=== PATIENT | male | born 1970 | race Caucasian/White ===

== ENCOUNTER 2018-01-16 03:42 | Emergency (ER) | payer MEDICAID, OTHER ==
[~2018-01-16] VITALS: Ht 177.8 cm; Wt 86.2 kg
[2018-01-16 03:44] VITALS: BP 135/80
--- NOTE | 2018-01-16 03:46 | NUR ---
TO BED # 5 AMBULATORY , REPORT GIVEN TO AMANDA DEE.
--- NOTE | 2018-01-16 03:50 | NUR ---
PATIENT IS A 47 Y/O MALE WHO PRESENTS TO THE ED C/O ABD PAIN. PT STATES THAT HE ATE PIZZA. PT REPORTS 10/10 BURNING ABD PAIN THAT DOES NOT RADIATE. PT DENIES CP, SOB, REPORTS NAUSEA/VOMITING. PT AAOX4, RR EVEN/UNLABORED, TOOK TUMS WITH NO RELIEF. PT REPOSITIONED FOR COMFORT, BED IN LOWEST POSITION. ER MD DR. PIERCE NOTIFIED. WILL CONTINUE TO MONITOR.
[2018-01-16] MEDS ORDERED: ONDANSETRON 4 MG ODT PO ONE (03:55)
[2018-01-16] MEDS ORDERED: DICYCLOMINE HCL LIQUID 20 MG, ALUMINUM HYD/MAG/SIMETHICONE 30 ML, LIDOCAINE VISCOUS 2% ... PO ONE ×3 (03:55)
[2018-01-16] MEDS ORDERED: ONDANSETRON 4 MG ODT ONE (04:04)
[2018-01-16] MEDS ORDERED: ALUMINUM HYD/MAG/SIMETHICONE 30 ML UDC ONE (04:05)
[2018-01-16] MEDS ORDERED: DICYCLOMINE HCL LIQUID 10 MG/5 ML UDC ONE (04:06)
[2018-01-16] MEDS ORDERED: LIDOCAINE VISCOUS 2% 20 ML UDC ONE (04:08)
[2018-01-16 05:25] VITALS: BP 132/78
--- NOTE | 2018-01-16 05:25 | NUR ---
Patient discharged with v/s stable. Written and verbal after care instructions given and explained. Patient alert, oriented and verbalized understanding of instructions. Ambulatory with steady gait. All questions addressed prior to discharge. ID band removed. Patient advised to follow up with PMD. Rx of MYLANTA given. Patient educated on indication of medication including possible reaction and side effects. Opportunity to ask questions provided and answered.
[2018-01-16 06:11] LABS: BASOPHILS # (AUTO) 0.1 K/uL (0.00-0.22); BASOPHILS % (AUTO) 0.7 % (0.0-2.0); EOSINOPHILS # (AUTO) 0.3 K/uL (0-0.4); EOSINOPHILS % (AUTO) 1.8 % (0.0-4.0); HEMATOCRIT 47.7 % (36-52); HEMOGLOBIN 16.5 g/dL (12.0-18.0); LYMPHOCYTES # (AUTO) 2.1 K/uL (2.0-11.5); LYMPHOCYTES % (AUTO) 14.4 % (20.5-51.1); MEAN CORPUSCULAR HEMOGLOBIN 30 pg (27-31); MEAN CORPUSCULAR HGB CONC 35 g/dL (33-37); MEAN CORPUSCULAR VOLUME 85.3 fL (80-94); MONOCYTES # (AUTO) 0.8 K/uL (0.8-1.0); MONOCYTES % (AUTO) 5.7 % (1.7-9.3); NEUTROPHILS # (AUTO) 11.1 K/uL (1.8-7.7); NEUTROPHILS % (AUTO) 77.4 % (42.2-75.2); PLATELET COUNT (AUTO) 362 K/uL (140-450); RED BLOOD CELL COUNT(AUTO) 5.59 MIL/uL (4.20-6.10); RED CELL DISTRIBUTION WIDTH 13.1 % (11.6-13.7); WHITE BLOOD COUNT (AUTO) 14.3 K/uL (4.8-10.8)
[2018-01-16 07:27] LABS: ANION GAP 12.3 (8-16); CREATININE 1.3 mg/dL (0.7-1.3); POTASSIUM 4.3 mmol/L (3.5-5.1); TOTAL BILIRUBIN 0.4 mg/dL (0.0-1.0)
== END 2018-01-16 05:25 | disposition home or self-care (01) ==
LOC: MED 03:42
DX: R10.9 Unspecified abdominal pain (principal); R11.0 Nausea
CPT/HCPCS: 36415; 80053; 83690; 85025; 99284; S0119

== ENCOUNTER 2018-01-16 08:12 | Emergency (ER) | payer OTHER ==
[~2018-01-16] VITALS: Ht 177.8 cm; Wt 83.9 kg
[2018-01-16 08:17] VITALS: BP 151/98
--- NOTE | 2018-01-16 08:23 | NUR ---
pt ambulated to er bed 08
--- NOTE | 2018-01-16 08:27 | NUR ---
47YO M TO THE ER FOR ABD PAIN. WAS RECENTLY DISCHARGED THIS MORNING FOR SAME ISSUE, PT DID NOT FILL RX THAT WAS GIVEN. PT STATES PAIN RETURNED WHILE SLEEPING APPROX X2 HRS AFTER DISCHARGE. PT STATS PAIN ORIGINALY STARTED YESTERDAY EVENING AFTER EATING "[employer] PIZZA". CHILLS WITH NASEAUA AND FORCES SELF TO VOMIT. ABD FIRM, BS ACTIVE X4, TENDER. PT STATES CONSTIPATION, LAST BM YESTERDAY. LS CLEAR. PT DENIES ANY CP, SOB, OR FEVER AT THIS TIME. ER MD MADE AWEARE. WILL CONTINUE TO MONITOR.
[2018-01-16] MEDS ORDERED: ONDANSETRON 4 MG/2 ML VIAL IVP ONE (08:30)
[2018-01-16] MEDS ORDERED: NACL 0.9% 1,000 ML IV ONE (08:30)
[2018-01-16] MEDS ORDERED: KETOROLAC 30 MG/ML VIAL IVP ONE (08:30)
[2018-01-16 08:47] LABS: BASOPHILS # (AUTO) 0.2 K/uL (0.00-0.22); EOSINOPHILS # (AUTO) 0.2 K/uL (0-0.4); HEMOGLOBIN 18.5 g/dL (12.0-18.0); LYMPHOCYTES % (AUTO) 10.9 % (20.5-51.1); MEAN CORPUSCULAR HEMOGLOBIN 30 pg (27-31); MEAN CORPUSCULAR HGB CONC 35 g/dL (33-37); MEAN CORPUSCULAR VOLUME 85.4 fL (80-94); MONOCYTES # (AUTO) 1.3 K/uL (0.8-1.0); MONOCYTES % (AUTO) 6.8 % (1.7-9.3); NEUTROPHILS # (AUTO) 14.9 K/uL (1.8-7.7); NEUTROPHILS % (AUTO) 80.3 % (42.2-75.2); PLATELET COUNT (AUTO) 396 K/uL (140-450); RED BLOOD CELL COUNT(AUTO) 6.21 MIL/uL (4.20-6.10); RED CELL DISTRIBUTION WIDTH 13.1 % (11.6-13.7); WHITE BLOOD COUNT (AUTO) 18.5 K/uL (4.8-10.8)
[2018-01-16 09:45] LABS: ALBUMIN 3.6 g/dL (3.4-5.0); CARBON DIOXIDE 31.6 mmol/L (21-32); CREATININE 1.2 mg/dL (0.7-1.3); POTASSIUM 4.6 mmol/L (3.5-5.1); TOTAL BILIRUBIN 0.3 mg/dL (0.0-1.0)
--- NOTE | 2018-01-16 09:48 | NUR ---
PT APPEARS TO BE SLEEPING IN NO APPEARENT DISTRESS. RR EVEN AND UNLABORED. WILL CONTINUE TO MONITOR.
[2018-01-16 10:39] VITALS: BP 138/77
== END 2018-01-16 10:39 | disposition home or self-care (01) ==
LOC: MED 08:12
DX: K29.70 Gastritis, unspecified, without bleeding (principal); Z88.0 Allergy status to penicillin; J45.909 Unspecified asthma, uncomplicated
CPT/HCPCS: 36415; 80053; 81002; 83690; 85025; 96361; 96374; 96375; 99284; J1885; J2405; J7030

== ENCOUNTER 2018-01-16 20:08 | Inpatient (IN) | payer OTHER ==
[~2018-01-16] VITALS: Ht 177.8 cm; Wt 90.3 kg
[2018-01-16 20:12] VITALS: BP 160/74
--- NOTE | 2018-01-16 20:14 | NUR ---
TO BED # 3 AMB, REPORT GIVEN TO JAZZ DEE.
--- NOTE | 2018-01-16 20:20 | NUR ---
47Y M BIB FAMILY C/O AB PAIN +VOMITING X 24HOURS; PT STATES " I ATE A [employer] PIZZA AND SINCE THEN MICHAEL BEEN THROWING UP" PT DENIES ANY DIARRHEA; STATES "I WAS HERE AT [facility] EARLIER, PRESCRIBED MYLANTA BUT ITS NOT WORKING" PT AAOX4, GCS 15; BREATHING IS UNLABORED AND EVEN; PT AB IS SOFT AND NONTENDER BUT STATES HE IS HAVING ABD PAIN; PT AMBULATORY W/ STEADY GAIT; ER MD DR PACE MADE AWARE
--- NOTE | 2018-01-16 20:25 | NUR ---
DR PACE AT BEDSIDE EVALUATING
[2018-01-16] MEDS ORDERED: ONDANSETRON 4 MG/2 ML VIAL IVP ONE (20:30)
[2018-01-16] MEDS ORDERED: KETOROLAC 30 MG/ML VIAL IVP ONE (20:30)
[2018-01-16] MEDS ORDERED: NACL 0.9% 1,000 ML IV ONE (20:30)
[2018-01-16] MEDS ORDERED: ACETAMINOPHEN 325 MG TAB PO PRN (22:05)
[2018-01-16] MEDS ORDERED: MORPHINE SULFATE 4 MG/ML SYR IVP PRN (22:05)
[2018-01-16] MEDS ORDERED: MORPHINE SULFATE 2 MG/ML SYR IVP PRN (22:05)
[2018-01-16] MEDS ORDERED: METOCLOPRAMIDE 10 MG/2 ML INJ VIAL IVP PRN (22:10)
[2018-01-16 22:35] VITALS: BP 149/103
--- NOTE | 2018-01-16 22:35 | NUR ---
PT ARRIVED VIA WHEELCHAIR AND AMBULATED TO BED. RECEIVED REPORT FROM ER NURSE. PT AOX4, ON ROOM AIR WITH IV RIGHT HAND 20G. MOTHER AT BEDSIDE. DISCUSSED PLAN OF CARE AND PT VERBALIZED UNDERSTANDING. NO S/S OF RESPIRATORY DISTRESS OR DISCOMFORT. UPDATED WHITE BOARD. ORIENTED PT TO ROOM, BED AND CALL LIGHT. BED IN LOWEST POSITION, BED BREAKS ON, BOTH SIDE RAILS UP. BED SIDE TABLE AND CALL LIGHT ARE WITHIN REACH. WILL CONTINUE TO MONITOR.
--- NOTE | 2018-01-16 22:45 | NUR ---
Patient will be admitted to care of [facility]. Admited to MS. Will go to room 120B. Belongings list completed. Report to IVANA DEE.
[2018-01-16] MEDS: NACL 0.9% 1,000 ML IV SCH (22:48)
--- NOTE | 2018-01-16 23:20 | NUR ---
PT REQUESTING FOOD AND PROVIDED JELLO HOWEVER PT BECAME NAUSEOUS. PROVIDED PT WITH REGLAN. PT ALSO C/O 01/07 PAIN- MEDICATED PT. WILL CONTINUE TO MONITOR.
[2018-01-17] VITALS: BP 152/98
--- NOTE | 2018-01-17 | NUR ---
PT SLEEPING IN BED. VITAL SIGNS TAKEN AND TOLERATED WELL. NO S/S OF RESPIRATORY DISTRESS OR DISCOMFORT NOTED AT THIS TIME. WILL CONTINUE TO MONITOR.
--- NOTE | 2018-01-17 02:00 | NUR ---
PT SLEEPING IN BED. NO S/S OF RESPIRATORY DISTRESS OR DISCOMFORT NOTED AT THIS TIME. WILL CONTINUE TO MONITOR.
--- NOTE | 2018-01-17 04:00 | NUR ---
PT CONTINUES TO SLEEP IN BED. NO S/S OF RESPIRATORY DISTRESS OR DISCOMFORT NOTED AT THIS TIME. WILL CONTINUE TO MONITOR.
--- NOTE | 2018-01-17 06:00 | NUR ---
PT CONTINUES TO SLEEP. NO S/S OF RESPIRATORY DISTRESS OR DISCOMFORT NOTED. WILL CONTINUE TO MONITOR.
[2018-01-17 06:26] LABS: HEMOGLOBIN 15.2 g/dL (12.0-18.0); MEAN CORPUSCULAR HEMOGLOBIN 29 pg (27-31); MEAN CORPUSCULAR HGB CONC 34 g/dL (33-37); MEAN CORPUSCULAR VOLUME 86.7 fL (80-94); PLATELET COUNT (AUTO) 306 K/uL (140-450); RED BLOOD CELL COUNT(AUTO) 5.19 MIL/uL (4.20-6.10); RED CELL DISTRIBUTION WIDTH 12.7 % (11.6-13.7)
[2018-01-17 06:47] LABS: ALBUMIN 3.2 g/dL (3.4-5.0); ANION GAP 13.6 (8-16); CARBON DIOXIDE 27.3 mmol/L (21-32); CREATININE 1.3 mg/dL (0.7-1.3); POTASSIUM 3.9 mmol/L (3.5-5.1); TOTAL BILIRUBIN 0.5 mg/dL (0.0-1.0)
--- NOTE | 2018-01-17 07:14 | NUR ---
ENDORSED PT CARE TO DAY SHIFT NURSE JEROMY FOR CONTINUITY OF CARE.
--- NOTE | 2018-01-17 07:16 | NUR ---
RECEIVED REPORT FROM FARM MACHINERY SET UP MECHANIC NURSE IVANA AT BEDSIDE FOR CONTINUITY OF CARE. PT IS AAOX4. INTRODUCED SELF AND UPDATED BOARD. PT IN NO SIGNS OF DISTRESS. NO C/O PAIN. ON RA O2 SAT 95%. LUNG SOUNDS CLEAR ON AUSCULTATION. IV TO R HAND 20G INTACT. NS AT 100ML/HR. BS PRESENT. CALL LIGHT WITHIN REACH. BED IN LOW POSITION, WHEELS LOCKED. WILL CONTINUE TO MONITOR.
[2018-01-17 07:18] LABS: EOSINOPHILS % (MANUAL) 2 % (0-4); LYMPHOCYTES % (MANUAL) 10 % (20-46); MONOCYTES % (MANUAL) 12 % (5-12)
[2018-01-17 08:00] VITALS: BP 133/80
[2018-01-17] MEDS: NACL 0.9% 1,000 ML IV SCH (08:50)
--- NOTE | 2018-01-17 08:51 | NUR ---
PATIENT HAS BEEN SCREENED AND CATEGORIZED MODERATE NUTRITION RISK. PATIENT WILL BE SEEN WITHIN 3-5 DAYS OF ADMISSION. 01/19/18 01/21/[address]
[2018-01-17] MEDS ORDERED: ENOXAPARIN 40 MG/0.4 ML SYR SUBQ SCH (09:00)
--- NOTE | 2018-01-17 10:27 | NUR ---
NON ADMIN LOVENOX. PT REFUSED MED. EXPLAINED RISKS AND BENEFITS. PT STILL REFUSED. STATED HE FEELS BETTER NOW. DENIES ABD PAIN/N/V. WAITING FOR SURGERY CONSULT. EXPLAINED TO PT NPO STATUS. VERBALIZED UNDERSTANDING.
--- NOTE | 2018-01-17 11:34 | NUR ---
PT UP AND OUT OF ROOM AMBULATING DOWN THE HALLWAY WITH SIGNIFICANT OTHER. DENIES ABD PAIN, DIZZINESS/N/V. STEADY GAIT. PT STATED "HE USED THE BATHROOM AND IS FEELING A LOT BETTER NOW."
--- NOTE | 2018-01-17 11:44 | NUR ---
PT WALKED TO NURSING STATION AND SPOKE WITH RN AND DISSOLVER OPERATOR. PT WAS STATING "HE WAS READY TO LEAVE THE HOSPITAL AND FEELS BETTER NOW." ALSO STATED "HE HAD A BM TODAY AND WANTED TO GO HOME NOW." INFORMED PT THERE WAS STILL SURGERY CONSULT. PT DID NOT WANT TO WAIT AND ASKED TO GO HOME NOW. PREPARED AMA FORM FOR PT.
--- NOTE | 2018-01-17 11:45 | NUR ---
PT SIGNED AMA. PAGED DR. DOBSON. REMOVED IV TO R HAND 20G. IV CATHETER TIP INTACT. APPLIED DRESSING AND PRESSURE TO SITE. NO BLEEDING NOTED. REMOVED ID BANDS. PAGED SECURITY FOR TSHIRT AND PANTS. PT'S CLOTHES WERE SOILED.
--- NOTE | 2018-01-17 11:58 | NUR ---
INFORMED DR. DOBSON PT SIGNED AMA
--- NOTE | 2018-01-17 12:57 | NUR ---
Clinical review faxed to [facility] at [phone]
== END 2018-01-17 11:50 | disposition left against medical advice (07) | DRG 247 ==
LOC: MED 20:08 → MTU 22:07
PROVIDERS: ADMIT Hospitalist; ATTEND Hospitalist
DX: K56.609 Unspecified intestinal obstruction, unspecified as to partial versus complete obstruction (principal); F17.210 Nicotine dependence, cigarettes, uncomplicated; Z53.21 Procedure and treatment not carried out due to patient leaving prior to being seen by health care provider; Z88.0 Allergy status to penicillin; Z98.890 Other specified postprocedural states
CPT/HCPCS: 36415; 74018; 80053; 85025; 87081; 96361; 96374; 96375; 99285; J1650; J1885; J2270; J2405; J2765; J7030; Q0092

== ENCOUNTER 2018-07-03 00:45 | Emergency (ER) | payer OTHER ==
[~2018-07-03] VITALS: Ht 180.3 cm; Wt 88.5 kg
[2018-07-03 00:48] VITALS: BP 149/102
--- NOTE | 2018-07-03 00:52 | NUR ---
PT TO BED 3 AT THIS TIME
[2018-07-03] MEDS ORDERED: NACL 0.9% 1,000 ML IV ONE (00:57)
[2018-07-03] MEDS ORDERED: MORPHINE SULFATE 4 MG/ML SYR IVP ONE (01:00)
[2018-07-03] MEDS ORDERED: ONDANSETRON 4 MG/2 ML VIAL IVP ONE (01:00)
[2018-07-03] MEDS ORDERED: DICYCLOMINE HCL LIQUID 20 MG, ALUMINUM HYD/MAG/SIMETHICONE 30 ML, LIDOCAINE VISCOUS 2% ... PO ONE ×3 (01:00)
--- NOTE | 2018-07-03 01:00 | NUR ---
48 YO MALE COMES TO ER FOR C/O ABD PAIN AFTER DRINKING X1 SHOT OF VODKA. PT DENIES PMH. ALLERGIES TO PCN. PT AAOX4, AMBULATING @ BEDSIDE. S1 S2 HEARD NO EDEMA, <3 SEC CAP REFILL. LUNGS CLEAR EVEN UNLABORED. ABD SOFT NON DISTENDED. ACTIVE BS X4. LAST BM 07/02/18. PT C/O ABD PAIN 05/09. PT VOIDING. SKIN INTACT. WILL UPDATE ER
[2018-07-03] MEDS ORDERED: MORPHINE SULFATE 2 MG/ML SYR ONE (01:23)
[2018-07-03 01:38] LABS: BASOPHILS # (AUTO) 0.1 K/uL (0.00-0.22); EOSINOPHILS # (AUTO) 0.5 K/uL (0-0.4); EOSINOPHILS % (AUTO) 6.5 % (0.0-4.0); HEMATOCRIT 42.1 % (36-52); HEMOGLOBIN 14.1 g/dL (12.0-18.0); LYMPHOCYTES # (AUTO) 2.3 K/uL (2.0-11.5); LYMPHOCYTES % (AUTO) 27.9 % (20.5-51.1); MEAN CORPUSCULAR HEMOGLOBIN 29 pg (27-31); MEAN CORPUSCULAR HGB CONC 34 g/dL (33-37); MEAN CORPUSCULAR VOLUME 87.4 fL (80-94); NEUTROPHILS # (AUTO) 4.3 K/uL (1.8-7.7); NEUTROPHILS % (AUTO) 52.6 % (42.2-75.2); PLATELET COUNT (AUTO) 262 K/uL (140-450); RED BLOOD CELL COUNT(AUTO) 4.82 MIL/uL (4.20-6.10); RED CELL DISTRIBUTION WIDTH 12.6 % (11.6-13.7); WHITE BLOOD COUNT (AUTO) 8.1 K/uL (4.8-10.8)
[2018-07-03 01:52] LABS: ANION GAP 13.8 (8-16); CARBON DIOXIDE 28.3 mmol/L (21-32); POTASSIUM 4.1 mmol/L (3.5-5.1)
[2018-07-03 01:58] LABS: ALBUMIN 3.3 g/dL (3.4-5.0); TOTAL BILIRUBIN 0.2 mg/dL (0.0-1.0)
--- NOTE | 2018-07-03 02:00 | NUR ---
PT LAYING IN BED, EYES CLOSED, AROUSABLE, VSS. NO ACUTE DISTRESS. WILL CONTINUE TO OBSERVE.
--- NOTE | 2018-07-03 03:00 | NUR ---
Patient discharged with v/s stable. Written and verbal after care instructions given and explained. Patient alert, oriented and verbalized understanding of instructions. Ambulatory with steady gait. All questions addressed prior to discharge. ID band removed. Patient advised to follow up with PMD. Rx of BENTYL given. Patient educated on indication of medication including possible reaction and side effects. Opportunity to ask questions provided and answered.
[2018-07-03 03:08] VITALS: BP 138/99
== END 2018-07-03 03:00 | disposition home or self-care (01) ==
LOC: MED 00:45
DX: R10.32 Left lower quadrant pain (principal); F17.210 Nicotine dependence, cigarettes, uncomplicated; Z88.0 Allergy status to penicillin
CPT/HCPCS: 36415; 74176; 80053; 83690; 85025; 96374; 96375; 99284; J2270; J2405; J7030

== ENCOUNTER 2019-02-14 13:04 | Emergency (ER) | payer SELFPAY ==
[~2019-02-14] VITALS: Ht 177.8 cm; Wt 88.5 kg
--- NOTE | 2019-02-14 13:20 | NUR ---
PT AMBULATED TO ER BED 7
[2019-02-14 13:21] VITALS: BP 157/71
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
--- NOTE | 2019-02-14 14:23 | NUR ---
DR. LOZADA BEDSIDE EVALUATING PT
--- NOTE | 2019-02-14 15:03 | NUR ---
PT TAKEN TO CT VIA [facility]
--- NOTE | 2019-02-14 15:16 | NUR ---
[facility]
[2019-02-14 15:41] LABS: BASOPHILS # (AUTO) 0.1 K/uL (0.00-0.22); BASOPHILS % (AUTO) 0.5 % (0.0-2.0); EOSINOPHILS # (AUTO) 0.5 K/uL (0-0.4); EOSINOPHILS % (AUTO) 4.5 % (0.0-4.0); HEMATOCRIT 45.3 % (36-52); HEMOGLOBIN 15.2 g/dL (12.0-18.0); LYMPHOCYTES # (AUTO) 2.1 K/uL (2.0-11.5); LYMPHOCYTES % (AUTO) 19.5 % (20.5-51.1); MEAN CORPUSCULAR HEMOGLOBIN 28 pg (27-31); MEAN CORPUSCULAR HGB CONC 34 g/dL (33-37); MEAN CORPUSCULAR VOLUME 83.9 fL (80-94); MONOCYTES % (AUTO) 9.8 % (1.7-9.3); NEUTROPHILS # (AUTO) 6.9 K/uL (1.8-7.7); NEUTROPHILS % (AUTO) 65.7 % (42.2-75.2); PLATELET COUNT (AUTO) 297 K/uL (140-450); RED CELL DISTRIBUTION WIDTH 13.2 % (11.6-13.7); WHITE BLOOD COUNT (AUTO) 10.5 K/uL (4.8-10.8)
[2019-02-14 15:53] LABS: CARBON DIOXIDE 26.1 mmol/L (21-32); CREATININE 0.9 mg/dL (0.7-1.3); POTASSIUM 4.1 mmol/L (3.5-5.1)
[2019-02-14 16:00] LABS: ALBUMIN 3.1 g/dL (3.4-5.0); TOTAL BILIRUBIN 0.3 mg/dL (0.0-1.0)
--- NOTE | 2019-02-14 16:22 | NUR ---
PT IS LYING AND RESTING IN THE BED. VSS.
--- NOTE | 2019-02-14 16:27 | NUR ---
PT TAKEN TO CT VIA [facility]
--- NOTE | 2019-02-14 17:15 | NUR ---
PT IS RESTING IN BED. VSS.
[2019-02-14 18:50] VITALS: BP 139/63
--- NOTE | 2019-02-14 18:50 | NUR ---
Patient discharged with v/s stable. Written and verbal after care instructions given and explained. Patient verbalized understanding. Ambulatory with steady gait. All questions addressed prior to discharge. Advised to follow up with PMD.
--- NOTE | 2019-02-14 18:50 | NUR ---
PT REFUSED TDAP SHOT. PT STATES THAT HE HAD VACCINATIONS FOR TDAP LAST YEAR
== END 2019-02-14 18:50 | disposition home or self-care (01) ==
LOC: MED 13:04
DX: M54.6 Pain in thoracic spine (principal); M79.651 Pain in right thigh; Z88.0 Allergy status to penicillin; V03.99XA Pedestrian with other conveyance injured in collision with car, pick-up truck or van, unspecified whether traffic or nontraffic accident, initial encounter; Y93.89 Activity, other specified; Y92.89 Other specified places as the place of occurrence of the external cause; Y99.8 Other external cause status
CPT/HCPCS: 36415; 70450; 71260; 72072; 72125; 72170; 73552; 74177; 80053; 85025; 99284; Q9967

== ENCOUNTER 2019-07-21 21:47 | Emergency (ER) | payer MEDICAID, OTHER ==
[~2019-07-21] VITALS: Ht 177.8 cm; Wt 83.9 kg
[2019-07-21 22:04] VITALS: BP 130/62
[2019-07-21] MEDS ORDERED: LIDOCAINE MPF 1% 10 MG/ML VIAL INJ ONE (22:25)
--- NOTE | 2019-07-21 22:35 | NUR ---
REMOVED LIDOCAINE FOR MD PACE FOR BEDSIDE PROCEDURE. GAVE TO JINNY NEELY TO GIVE TO MD PACE FOR ADMINISTRATION.
--- NOTE | 2019-07-21 23:00 | NUR ---
49 YEAR OLD MALE COMPLAINS OF RIGHT EAR SWELLING X 6 DAYS. PATIENT STATES THAT THERE IS PAIN WHEN RUBBED, BUT MINIMAL PAIN WHEN NOT RUBBING EAR. PATIENT STATES HE SQUEEZED IT AT ONE POINT AND CLEAR LIQUID WAS RELEASED. VISIBLE SWELLING IN RIGHT EAR. PATIENT BREATHING EVEN AND UNLABORED, ALERT AND ORIENTED, SKIN WARM AND DRY. BED IN LOWEST POSITION, LOCKED, BED RAIL UPX1.
--- NOTE | 2019-07-21 23:35 | NUR ---
DR PACE AT BEDSIDE PREFORMING PROCEDURE
--- NOTE | 2019-07-21 23:45 | NUR ---
LATE ENTRY- SET UP I&D KIT FOR ED PHYSICAN, ASSISTED ED PHYSICAN WITH PROCEDURE, CLEANED WOUND WITH SALINE FLUSH AND GAUZE, PLACED NON-ADHERING GAUZE ON PT'S RIGHT EAR AND PLACED A PRESSURE DRESSING ON IT.
[2019-07-22 00:03] VITALS: BP 130/62
--- NOTE | 2019-07-22 00:04 | NUR ---
Patient discharged with v/s stable. Written and verbal after care instructions given and explained. Patient alert, oriented and verbalized understanding of instructions. Ambulatory with steady gait. All questions addressed prior to discharge. ID band removed. Patient advised to follow up with PMD. Rx of KEFLEX, NORCO, MOTRIN given. Patient educated on indication of medication including possible reaction and side effects. Opportunity to ask questions provided and answered.
[2019-07-22] MEDS ORDERED: LIDOCAINE MPF 1% 10 MG/ML VIAL INJ ONE (00:05)
== END 2019-07-22 00:04 | disposition home or self-care (01) ==
LOC: MED 21:47
DX: S00.431A Contusion of right ear, initial encounter (principal); F17.200 Nicotine dependence, unspecified, uncomplicated; Z90.49 Acquired absence of other specified parts of digestive tract; Z88.0 Allergy status to penicillin; Y29.XXXA Contact with blunt object, undetermined intent, initial encounter; Y93.89 Activity, other specified; Y92.89 Other specified places as the place of occurrence of the external cause; Y99.8 Other external cause status
CPT/HCPCS: 10140; 99284; J2001

== ENCOUNTER 2019-10-27 19:36 | Emergency (ER) | payer MEDICAID, OTHER ==
[~2019-10-27] VITALS: Ht 177.8 cm; Wt 84.8 kg
[2019-10-27 19:42] VITALS: BP 145/98
[2019-10-27] MEDS ORDERED: HYDROcodone/APAP 5/325 MG 1 TAB TAB PO ONE (19:50)
[2019-10-27] MEDS ORDERED: LIDOCAINE/EPI 1% 1:100000 20 ML VIAL INJ ONE (19:50)
[2019-10-27] MEDS ORDERED: BACITRACIN OINT 500 UNITS/GM PKT TP ONE ×2 (20:55→21:00)
[2019-10-27 21:05] VITALS: BP 145/98
== END 2019-10-27 21:06 | disposition home or self-care (01) ==
LOC: MED 19:36
DX: S51.811A Laceration without foreign body of right forearm, initial encounter (principal); S80.211A Abrasion, right knee, initial encounter; F17.210 Nicotine dependence, cigarettes, uncomplicated; Z90.49 Acquired absence of other specified parts of digestive tract; Z88.0 Allergy status to penicillin; V27.4XXA Motorcycle driver injured in collision with fixed or stationary object in traffic accident, initial encounter; Y93.89 Activity, other specified; Y92.410 Unspecified street and highway as the place of occurrence of the external cause; Y99.8 Other external cause status
CPT/HCPCS: 12002; 73090; 73562; 99284; J2001; Q0092

== ENCOUNTER 2020-12-03 06:00 | Emergency (ER) | payer OTHER ==
[~2020-12-03] VITALS: Ht 177.8 cm; Wt 87.1 kg
[2020-12-03 06:18] VITALS: BP 147/73
--- NOTE | 2020-12-03 06:25 | NUR ---
TO BED 11, AMBULATORY
--- NOTE | 2020-12-03 06:30 | NUR ---
PATIENT BIB SELF FOR RIGHT EYE DISCOMFORT X 1 DAY. PATIENT REPORTS HE WAS AT WORK YESTERDAY WHEN HE ACCIDENTALY GOT A DROP OF "APOXY GLUE" IN HIS RIGHT EYE WHEN HE WAS MIXING IT. PATIENTS RIGHT EYE NOTED TO BE RED, SWOLLEN AND WATERY. NO PUS OR DISCHARGE NOTED. PATIENT REPORTS ATTEMPT TO CLEANSE EYE WITH WATER FOLLOWING INCIDENT. PATIENT DENIES LOSS OR VISION OR PAIN AT THIS TIME. PATIENT DESCRIBES RIGHT EYE "UNCOMFORTABLE." MED HX: ASTHMA ALLERGIES: PENICILLINS
[2020-12-03] MEDS ORDERED: FLUORESCEIN OPTH STRIP 1 MG OP ONE (06:45)
[2020-12-03] MEDS ORDERED: TOBRAMYCIN 0.3% OPTH SOL 5 ML BTL OP SCH (06:45)
[2020-12-03] MEDS ORDERED: TETRACAINE HCL/PF 0.5% OPTH 4 ML BTL OP ONE (06:45)
[2020-12-03] MEDS ORDERED: TOBRAMYCIN 80 MG/2 ML VIAL ONE (06:54)
[2020-12-03] MEDS ORDERED: GENTAMICIN OP 0.3% 15 MG/5 ML BTL OP ONE (07:00)
[2020-12-03] MEDS ORDERED: KETO5SOL OP (07:11)
[2020-12-03] MEDS ORDERED: TOBR5SOL17 RIGHT EYE (07:11)
--- NOTE | 2020-12-03 07:15 | NUR ---
REPORT GIVEN TO LEILA BARBOZA FOR CHANGE OF SHIFT.
--- NOTE | 2020-12-03 07:26 | NUR ---
Francisco granados in [facility] - 12/03/20 at 0723 by [email or web address]: RIGHT EYE 20/13, LEFT EYE 20/15, BOTH EYE 20/13
--- NOTE | 2020-12-03 07:27 | NUR ---
[facility]: RIGHT EYE 20/13, LEFT EYE 20/15, BOTH EYES 20/13
[2020-12-03 07:41] VITALS: BP 147/73
== END 2020-12-03 07:41 | disposition home or self-care (01) ==
LOC: MED 06:00
DX: H16.011 Central corneal ulcer, right eye (principal); J45.909 Unspecified asthma, uncomplicated; Z88.0 Allergy status to penicillin; X58.XXXA Exposure to other specified factors, initial encounter; Y93.89 Activity, other specified; Y92.89 Other specified places as the place of occurrence of the external cause; Y99.8 Other external cause status
CPT/HCPCS: 90471; 90715; 99284; J3260

== ENCOUNTER 2020-12-26 20:29 | Emergency (ER) | payer OTHER ==
[~2020-12-26] VITALS: Ht 177.8 cm; Wt 88.5 kg
[~2020-12-26 20:29] MED LIST: KETO5SOL OP; TOBR5SOL17 RIGHT EYE
[2020-12-26 20:33] VITALS: BP 151/90
[2020-12-26] MEDS ORDERED: KETOROLAC 30 MG/ML VIAL IM ONE (21:40)
[2020-12-26 22:21] VITALS: BP 130/82
== END 2020-12-26 22:21 | disposition home or self-care (01) ==
LOC: MED 20:29
DX: M25.512 Pain in left shoulder (principal); J45.909 Unspecified asthma, uncomplicated; Z88.0 Allergy status to penicillin; Z79.899 Other long term (current) drug therapy
CPT/HCPCS: 71045; 73030; 96372; 99284; J1885

== ENCOUNTER 2021-04-05 19:25 | Emergency (ER) | payer OTHER ==
[~2021-04-05] VITALS: Ht 177.8 cm; Wt 84.8 kg
[2021-04-05 20:05] VITALS: BP 125/70
--- NOTE | 2021-04-05 20:08 | NUR ---
TO LOBBY A/W BED AMBULATORY
--- NOTE | 2021-04-05 20:14 | NUR ---
SEEN AND EXAMINED BY TIEN
[2021-04-05] MEDS ORDERED: IBUP-2213 PO (21:26)
[2021-04-05] MEDS ORDERED: DICL20GE TP (21:26)
[2021-04-05 23:03] VITALS: BP 125/70
== END 2021-04-05 21:30 | disposition home or self-care (01) ==
LOC: MED 19:25
DX: S83.8X1A Sprain of other specified parts of right knee, initial encounter (principal); X58.XXXA Exposure to other specified factors, initial encounter; Y93.89 Activity, other specified; Y92.89 Other specified places as the place of occurrence of the external cause; Y99.8 Other external cause status
CPT/HCPCS: 73562; 99283

== ENCOUNTER 2023-10-14 00:49 | Emergency (ER) | payer OTHER ==
[~2023-10-14] VITALS: Ht 177.8 cm; Wt 83.0 kg
[~2023-10-14 00:49] MED LIST changes: +DICL20GE TP; +IBUP-2213 PO; -TOBR5SOL17 RIGHT EYE; +TOBR5SOL38 RIGHT EYE
[2023-10-14 00:54] VITALS: BP 125/86; PULSE 98; RESP 18; TEMP 97.9; O2SAT 100
[2023-10-14 01:25] VITALS: O2SAT 98
[2023-10-14 01:28] VITALS: TEMP 98.1
[2023-10-14] MEDS: LIDOCAINE MPF 1% 10 MG/ML VIAL INJ ONE (02:33)
[2023-10-14 02:38] VITALS: BP 127/74; PULSE 98; RESP 16; O2SAT 98
== END 2023-10-14 02:38 | disposition home or self-care (01) ==
LOC: MED 00:49
DX: S61.012A Laceration without foreign body of left thumb without damage to nail, initial encounter (principal); J45.909 Unspecified asthma, uncomplicated; Z90.49 Acquired absence of other specified parts of digestive tract; Z88.0 Allergy status to penicillin; Z79.899 Other long term (current) drug therapy; W22.8XXA Striking against or struck by other objects, initial encounter; Y93.89 Activity, other specified; Y92.89 Other specified places as the place of occurrence of the external cause; Y99.8 Other external cause status
CPT/HCPCS: 12002; 99282; J2001